=== PATIENT | female | born 1980 | race African-American/Black ===

== ENCOUNTER 2017-11-15 16:42 | Emergency (ER) | payer OTHER ==
[2017-11-15 16:49] VITALS: BP 141/67; PULSE 75; TEMP 97.5; BMI 45.4
--- NOTE | 2017-11-15 17:16 | PDOC ---
History of Present Illness - General Chief Complaint: Injury Stated Complaint: FALL Time Seen by Provider: 11/15/17 17:02 History Source: Patient - History of Present Illness Initial Comments: 11/15/17 18:37 Chief complaint: Ankle/leg injury Patient is a healthy 36-year-old female who states that she fell the other day, injuring left ankle. Patient has difficulty ambulating. Patient did not take pain medicine today. GENERAL/CONSTITUTIONAL: No fever, weakness. dizziness HEAD, EYES, EARS, NOSE AND THROAT: No change in vision. No ear pain or discharge. No sore throat. CARDIOVASCULAR: No chest pain RESPIRATORY: No shortness of breath or cough GASTROINTESTINAL: No pain, nausea, vomiting, diarrhea or constipation GENITOURINARY: No dysuria MUSCULOSKELETAL: No neck or back pain, + F the ankle SKIN: No rash NEUROLOGIC: No headache, vertigo, loss of consciousness, or loss of sensation. GENERAL: The patient is awake, alert, and fully oriented, in no acute distress. HEAD: Normal with no signs of trauma. EYES: Pupils equal, round and reactive to light, sclera anicteric, conjunctiva clear. ENT: pharynx: no erythema, no exudate, uvula midline NECK: supple CHEST: clear, nontender, rr ABD: soft, nontender EXTREMITIES: Left ankle with lateral swelling, no deformity, swelling on the lateral aspect of the foot, no tenderness, no deformity, neurovascular intact. Rest of extremities, Normal range of motion, no edema. NEUROLOGICAL: Normal speech, nonfocal exam. SKIN: Warm, Dry Past History - Past Medical History Allergies/Adverse Reactions: Allergies Allergy/AdvReac Type Severity Reaction Status Date / Time Penicillins Allergy Verified 11/15/17 16:45 Home Medications: Ambulatory Orders NK [No Known Home Medication] 11/15/17 COPD: No - Suicide/Smoking/Psychosocial Hx Smoking History: Never smoked Have you smoked in the past 12 months: No Information on smoking cessation initiated: No Hx Alcohol Use: No Drug/Substance Use Hx: No Substance Use Type: None *Physical Exam - Vital Signs Last Vital Signs Temp Pulse Resp BP Pulse Ox 97.5 F L 75 18 141/67 100 11/15/17 16:46 11/15/17 16:46 11/15/17 16:46 11/15/17 16:46 11/15/17 16:46 Procedures - Splinting Splint Location: Left: Ankle Pre-Proc Neuro Vasc Exam: normal Pre-Made Type: aircast Post-Proc Neuro Vasc Exam: normal Boni Bandage: 3" Medical Decision Making - Medical Decision Making 11/15/17 18:39 Patient who injured left ankle, foot, painful, no other clinical concerns, we' ll get x-rays. Patient did not want pain medicine. 11/15/17 18:40 X-rays show no gross fracture, patient will be put in Boni wrap due to swelling, Aircast and crutches and given orthopedic follow-up *DC/Admit/Observation/Transfer Diagnosis at time of Disposition: Left ankle injury Qualifiers: Encounter type: initial encounter Qualified Code(s): S99.912A - Unspecified injury of left ankle, initial encounter - Discharge Dispostion Disposition: HOME Condition at time of disposition: Stable Decision to Admit order: No - Referrals Referrals: Inocente Carrion MD [Staff Physician] - Alon Morales MD [Staff Physician] - - Patient Instructions Printed Discharge Instructions: Ankle Sprain Additional Instructions: Elevate, wear splint You can apply ice for 20 minutes every 2 hours for the next 2 days Motrin 600 mg every 6 hours for pain. Call the orthopedist tomorrow - Post Discharge Activity
== END 2017-11-15 18:58 | disposition home or self-care (01) ==
LOC: JERFT 16:42
PROC: 2W3RX1Z Immobilization of Left Lower Leg using Splint (ICD-10-PCS; principal; 2017-11-15)
DX: S99.812A Other specified injuries of left ankle, initial encounter (principal); W18.39XA Other fall on same level, initial encounter; Y93.89 Activity, other specified; Y92.89 Other specified places as the place of occurrence of the external cause; Y99.8 Other external cause status
CPT/HCPCS: 29515; 73590-TC-LT-FY; 73610-TC-LT-FY; 73630-TC-LT; 99282-25